=== PATIENT | male | born 1995 | race African-American/Black ===

== ENCOUNTER 2016-07-05 20:42 | Emergency (ER) ==
--- NOTE | 2016-07-05 23:01 | PROVIDER DOCUMENTATION ---
HPI-Rash/Wound/ReCheck - General Source: patient - History of Present Illness-Dermatology Location: reports: genitalia Quality: reports: itchy Severity: reports: moderate Onset/Duration: reports: 5 days ago <Carlitos Carney - Last Filed: 07/05/16 23:02> <Antonino Kline - Last Filed: 07/05/16 23:45> - General Chief Complaint: Rash Stated Complaint: RASH Time Seen by Provider: 07/05/16 22:16 Allergies/Adverse Reactions: Allergies Allergy/AdvReac Type Severity Reaction Status Date / Time No Known Allergies Allergy Verified 05/31/16 20:34 Home Medications: Home Medication List Medication Instructions Recorded Confirmed Last Taken Type Acyclovir [Zovirax] 400 mg PO TID #30 tablet 07/05/16 Unknown Rx Diphenhydramine [Benadryl] 25 mg PO Q4-6H PRN PRN #20 capsule 07/05/16 Unknown Rx Permethrin 5% Cream [Elimite 5% 60 gm TOP ONCE #1 tube 07/05/16 Unknown Rx Cream] - History of Present Illness-Dermatology Nature of Presenting Problem: 21 y/o M presents to the ED with a rash in the Groin area and upper legs with bumps on the head of the penis after staying with his GF in a [employer] Five nights ago. (Carlitos Carney) Review of Systems - Adult - REVIEW OF SYSTEMS - ADULT Constitutional: denies: chills, fever Eyes: reports: no symptoms reported Ears, Nose, Mouth & Throat: reports: no symptoms reported Cardiovascular: reports: no symptoms reported Respiratory: reports: no symptoms reported Gastrointestinal: reports: no symptoms reported Genitourinary: reports: no symptoms reported Musculoskeletal: reports: no symptoms reported Integumentary: reports: itching, rash, skin sores/ulcer Neurological: reports: no symptoms reported Psychiatric: reports: no symptoms reported Endocrine: reports: no symptoms reported Hematologic/Lymphatic: reports: no symptoms reported Allergic/Immunologic: reports: no symptoms reported All Other Systems: Reviewed and Negative <Carlitos Carney - Last Filed: 07/05/16 23:02> Past History - Adult - PAST MEDICAL HISTORY-ADULT Review of Records: reports: Old Records Reviewed, Nursing Assessment Review, Medications Reviewed Major Childhood Illnesses: reports: denies history Cardiovascular: reports: denies history Respiratory: reports: denies history Gastrointestinal: reports: denies history Obstetrical/Gynecological: reports: denies history Genitourinary: reports: denies history Musculoskeletal: reports: chronic pain (back) Neurological: reports: denies history Psychiatric: reports: depression Endocrine/Immune: reports: denies history Other Conditions: reports: denies history - PRIOR SURGERIES/PROCEDURES Surgical/Procedure History: reports: none, other (patient had surgery because of a punctured lung and broken ribs ) - IMMUNIZATION STATUS Childhood Immunizations: See Nurse Assessment Flu Vaccine: See Nurse Assessment - FAMILY HISTORY Family History: reviewed, not pertinent <Carlitos Carney - Last Filed: 07/05/16 23:02> Physical Exam-General - PHYSICAL EXAM-ADULT Initial Vital Signs Reviewed: Yes - CONSTITUTIONAL General Appearance: appears well, alert, no apparent distress - EYES Eyes: PERRL/EOMI, pink conjunctivae - HEAD, EARS, NOSE, MOUTH & THROAT HENMT: moist mucous membranes, normal ENT inspection, TMs normal, pharynx normal - NECK Neck: non-tender, full range of motion, supple, normal inspection - RESPIRATORY Respiratory: lungs clear, normal breath sounds, no pleuratic chest pain, no respiratory distress, no accessory muscle use - CARDIOVASCULAR Cardiovascular: normal peripheral pulses, regular rate, rhythm - GASTROINTESTINAL (ABDOMEN) Abdominal Exam: normal bowel sounds, non tender, soft - GENITOURINARY Male Genitalia: circumcised, other (bumps on head of penis). negative: inguinal lymphadenopathy - MUSCULOSKELETAL Back Exam: normal inspection, no CVA tenderness, no vertebral tenderness Extremity: normal range of motion, non-tender, normal gait, normal inspection - SKIN Integumentary: normal color, normal turgor, warm/dry, rash (upper legs and pubic area) - NEUROLOGIC Neurologic: grossly normal, no motor/sensory deficits - PSYCHIATRIC Psych/Mental Status: normal mood/affect, normal thought content, normal thought process, oriented x 3 <Carlitos Carney - Last Filed: 07/05/16 23:02> - GENITOURINARY Male Genitalia: circumcised, herpes-like lesion. negative: epididymal tenderness, hydrocele, inguinal lymphadenopathy, scrotal swelling, urethral discharge, inguinal tenderness, testicular tenderness <Antonino Kline - Last Filed: 07/05/16 23:45> Progress <Carlitos Carney - Last Filed: 07/05/16 23:02> <Antonino Kline - Last Filed: 07/05/16 23:45> - PLAN OF CARE/RESULTS Progress/Plan/Lab Results: Vital Signs - 24 hr 07/05/16 20:58 Temperature 98 F Pulse Rate 57 L Respiratory 18 Rate Blood Pressure 139/70 O2 Sat by Pulse 99 Oximetry (Antonino Kline) Departure <Carlitos Carney - Last Filed: 07/05/16 23:02> - Departure Time of Disposition Order: 23:43 Certified Medical Emergency: Emergent <Antonino Kline - Last Filed: 07/05/16 23:45> - Departure DIAGNOSIS: Scabies Herpes genitalis Qualifiers: Herpes simplex infection site: unspecified Qualified Code(s): A60.00 - Herpesviral infection of urogenital system, unspecified Disposition: HOME 01 Condition: Stable Additional Instructions: FOLLOW UP WITH [facility] FOR A FULL STD SCREENING. ED Follow Up Instructions: You have been treated by a care provider in the Emergency Department. These instructions are being provided to you so you can have an understanding of how to care for yourself upon discharge. Upon discharge from the Emergency Department, you are responsible for making arrangements for follow-up care by a physician of your choice. Take all prescribed medications as directed. Return to the Emergency Department immediately for any new or worsening symptoms. You may call the Physician Referral phone number at [phone] to obtain a list of Physicians who are taking new patients. Prescriptions: Diphenhydramine [Benadryl] 25 mg PO Q4-6H PRN PRN #20 capsule PRN Reason: Itching Permethrin 5% Cream [Elimite 5% Cream] 60 gm TOP ONCE #1 tube Acyclovir [Zovirax] 400 mg PO TID #30 tablet Referrals: Binh Rivas [NON-STAFF] - Attestation - Physician/ VALDEMAR Attestation Patient care was provided by Advanced Practice Provider:: Yes Advanced Practice Provider:: Antonino Kline Advanced Practice Provider documentation review:: The Mid-level provider documentation, treatment plan and medical decision making was reviewed by the physician who agrees with all treatment and medical decision making by the MLP. <Antonino Kline - Last Filed: 07/05/16 23:45> Physician Attestation - Physician Attestation I, the provider, attest to the following statement:: Antonino Kline Physician documentation Attestation:: This documentation recorded by the scribe accurately reflects the service I personally performed and the decisions made by me. <Antonino Kline - Last Filed: 07/05/16 23:45>
[2016-07-06 00:13] VITALS: BP 130/74
== END 2016-07-06 00:16 | disposition home or self-care (01) ==
LOC: P.ED 20:42
DX: B86 Scabies (principal); A60.00 Herpesviral infection of urogenital system, unspecified; R21 Rash and other nonspecific skin eruption; L29.9 Pruritus, unspecified; L98.9 Disorder of the skin and subcutaneous tissue, unspecified; G89.29 Other chronic pain; M54.9 Dorsalgia, unspecified
CPT/HCPCS: 99282

== ENCOUNTER 2016-07-08 02:00 | Emergency (ER) ==
[2016-07-08 02:12] VITALS: BP 128/63
--- NOTE | 2016-07-08 02:25 | PROVIDER DOCUMENTATION ---
HPI-Rash/Wound/ReCheck <Jorge Yaos M - Last Filed: 07/08/16 02:23> - General Source: patient - History of Present Illness-Dermatology Location: reports: genitalia Quality: reports: itchy, painful Severity: reports: severe Onset/Duration: reports: last week Timing: reports: still present Context/Associated Symptoms: reports: blisters, rash Identifiable cause?: Yes Exposure: reports: other (sexual contact) Locality of Occurance: Home Similar Symptoms Previously?: Yes Recently seen or treated by another doctor?: Yes <Lissette Ortega - Last Filed: 07/08/16 02:34> - General Chief Complaint: Rash Stated Complaint: RASH/SCABBIES Time Seen by Provider: 07/08/16 02:22 Allergies/Adverse Reactions: Allergies Allergy/AdvReac Type Severity Reaction Status Date / Time No Known Allergies Allergy Verified 07/08/16 02:15 Home Medications: Home Medication List Medication Instructions Recorded Confirmed Last Taken Type Acyclovir [Zovirax] 400 mg PO TID #30 tablet 07/05/16 07/08/16 Unknown Rx Diphenhydramine [Benadryl] 25 mg PO Q4-6H PRN PRN #20 capsule 07/05/16 07/08/16 Unknown Rx Permethrin 5% Cream [Elimite 5% 60 gm TOP ONCE #1 tube 07/05/16 07/08/16 Unknown Rx Cream] - History of Present Illness-Dermatology Nature of Presenting Problem: 21 Y/O M presents to ED with Rash. Pt states that he had sex with his girlfriend unprotected last week, Immediately after felt insects crawling, and itching in his genital area. 4-5 day after red sores, blisters on his penis. Went to [facility] yesterday diagnosed w8th genital herpes and scabies. Came to [facility] for second opinion. (Lissette Ortega) Review of Systems - Adult - REVIEW OF SYSTEMS - ADULT Constitutional: denies: chills, fever Eyes: reports: no symptoms reported Ears, Nose, Mouth & Throat: reports: no symptoms reported Cardiovascular: reports: no symptoms reported Respiratory: reports: no symptoms reported Gastrointestinal: reports: no symptoms reported Genitourinary: reports: other (red sores and blisters) Musculoskeletal: reports: no symptoms reported Integumentary: reports: no symptoms reported Neurological: reports: no symptoms reported Psychiatric: reports: no symptoms reported Endocrine: reports: no symptoms reported Hematologic/Lymphatic: reports: no symptoms reported Allergic/Immunologic: reports: no symptoms reported All Other Systems: Reviewed and Negative <JordanLissette - Last Filed: 07/08/16 02:34> Past History - Adult - PAST MEDICAL HISTORY-ADULT Major Childhood Illnesses: reports: denies history Cardiovascular: reports: denies history Respiratory: reports: denies history Gastrointestinal: reports: denies history Obstetrical/Gynecological: reports: denies history Genitourinary: reports: denies history Musculoskeletal: reports: chronic pain (back) Neurological: reports: denies history Psychiatric: reports: depression Endocrine/Immune: reports: denies history Other Conditions: reports: denies history - PRIOR SURGERIES/PROCEDURES Surgical/Procedure History: reports: none, other (patient had surgery because of a punctured lung and broken ribs ) - IMMUNIZATION STATUS Childhood Immunizations: See Nurse Assessment Flu Vaccine: See Nurse Assessment - FAMILY HISTORY Family History: reviewed, not pertinent <Taiwo Yao - Last Filed: 07/08/16 02:23> - PAST MEDICAL HISTORY-ADULT Review of Records: reports: Old Records Reviewed, Nursing Assessment Review, Medications Reviewed, Social history reviewed & non-contributory. - SOCIAL HISTORY Smoking: other (black and milds ) Substance Use: marijuana Alcohol Use Frequency: never <Lissette Ortega - Last Filed: 07/08/16 02:34> Physical Exam-General - PHYSICAL EXAM-ADULT Initial Vital Signs Reviewed: Yes - CONSTITUTIONAL General Appearance: appears well, alert, no apparent distress - EYES Eyes: PERRL/EOMI, pink conjunctivae, fundi clear, no AV nicking - HEAD, EARS, NOSE, MOUTH & THROAT HENMT: normocephalic/atraumatic, moist mucous membranes, normal ENT inspection, TMs normal, pharynx normal - NECK Neck: non-tender, full range of motion, supple, normal inspection - RESPIRATORY Respiratory: chest non-tender, lungs clear, normal breath sounds - CARDIOVASCULAR Cardiovascular: normal peripheral pulses, regular rate, rhythm - GASTROINTESTINAL (ABDOMEN) Abdominal Exam: normal bowel sounds, non tender, soft - GENITOURINARY Male Genitalia: herpes-like lesion (penis and scrotum) - LYMPHATIC Lymphatic: no adenopathy - MUSCULOSKELETAL Back Exam: normal inspection, no CVA tenderness, no vertebral tenderness Extremity: normal range of motion, non-tender, normal gait - SKIN Integumentary: normal color, normal turgor, warm/dry - NEUROLOGIC Neurologic: director of golf II-XII nml as tested, grossly normal - PSYCHIATRIC Psych/Mental Status: normal mood/affect, normal thought content, normal thought process, oriented x 3 <Lissette Ortega - Last Filed: 07/08/16 02:34> Progress <Taiwo Yao - Last Filed: 07/08/16 02:23> <Lissette Ortega - Last Filed: 07/08/16 02:34> - PLAN OF CARE/RESULTS Progress/Plan/Lab Results: Vital Signs - 24 hr 07/08/16 02:11 Temperature 98.6 F Pulse Rate 83 Respiratory 18 Rate Blood Pressure 128/63 O2 Sat by Pulse 100 Oximetry (Lissette Ortega) Departure - Departure Time of Disposition Order: 02:23 Certified Medical Emergency: Urgent <Taiwo Yao - Last Filed: 07/08/16 02:23> - Departure Time of Disposition Order: 02:26 Certified Medical Emergency: Emergent <Lissette Ortega - Last Filed: 07/08/16 02:34> - Departure DIAGNOSIS: Herpes genitalis Qualifiers: Herpes simplex infection site: penis Qualified Code(s): A60.01 - Herpesviral infection of penis Disposition: HOME 01 Condition: Stable Additional Instructions: ED Follow Up Instructions:go to health unit for full std exposure evaluation/// no sex until counseling at health unit You have been treated by a care provider in the Emergency Department. These instructions are being provided to you so you can have an understanding of how to care for yourself upon discharge. Upon discharge from the Emergency Department, you are responsible for making arrangements for follow-up care by a physician of your choice. Take all prescribed medications as directed. Return to the Emergency Department immediately for any new or worsening symptoms. You may call the Physician Referral phone number at [phone] to obtain a list of Physicians who are taking new patients. Referrals: None,PCP [Primary Care Provider] - Attestation - Scribe Verification/Attestation Scribe:: Lissette Ortega Acting as Scribe for:: Taiwo Yao Scribe documention review:: This chart was documented by a scribe and accurately reflects the service the provider performed and the decisions made by the provider. <Lissette Ortega - Last Filed: 07/08/16 02:34> Physician Attestation
== END 2016-07-08 02:31 | disposition home or self-care (01) ==
LOC: ED 02:00
DX: A60.01 Herpesviral infection of penis (principal); R21 Rash and other nonspecific skin eruption; L29.9 Pruritus, unspecified; S30.822A Blister (nonthermal) of penis, initial encounter; G89.29 Other chronic pain; M54.9 Dorsalgia, unspecified